=== PATIENT | female | born 1990 | race Caucasian/White ===

== ENCOUNTER 2018-04-28 18:52 | Emergency (ER) | payer MEDICAID, SELFPAY ==
[2018-04-28 18:53] VITALS: BP 127/73; PULSE 87; RESP 18; TEMP 36.1; O2SAT 99; BMI 37.8
--- NOTE | 2018-04-28 19:19 | ED.DCSUM_ITS ---
- ER Visit Summary Date of Service: 04/28/18 Chief Complaint: Headache History of Present Illness: The patient is a 27 F presents to the emergency department headache. Patient states that she has a history of migraine, but has not had one for years. She states she woke yesterday with a frontal headache. She states that it got worse throughout the day. She was nauseated with a few bouts of vomiting. She states that she went to [place]. She had medications with some improvement of her symptoms, but then the headache returned today. She denies any visual change but does admit to photophobia. She denies any trauma. She denies any history of carbon monoxide exposure. She states she has only had headache for 2 days. It did not wake her from sleep. Physical Examination: Well-appearing patient is in no acute distress. Head is normocephalic, atraumatic. Pupils equal round reactive, extraocular muscles intact. There is no temporal artery tenderness. There is no vesicular rash. Neck supple. Kernig's and Brudzinski's are negative. Heart regular rate and rhythm. Lungs clear, chest nontender. Abdomen soft, nontender, nondistended. Neuro exam displays no focal or lateralizing deficit. 2+ symmetric lower extremity reflexes. No clonus. No ataxia or gait abnormality. Test Results: [] Emergency Department Course and Treatment: The patient presents with worsening headache. She has a history of migraine but states that this feels different. She is not meningitic. She is not encephalopathic. Headache was gradual in onset. As this was the patient's second ER visit, I did obtain a head CT. This was unremarkable. The patient was treated with Toradol, Compazine, Benadryl, Decadron. On reevaluation, her headache is totally resolved. I do not suspect a dangerous process like subarachnoid. The patient has a benign neurologic examination. She will be treated with antiemetics and Fioricet that she has had improvement with this in the past. The patient be discharged home. Treatment Plan: [] Disposition: Discharge Impression: Headache This note was generated with BRAINDIGITation software. It may contain incorrect words, spelling, and punctuation that were not noted in review of the chart prior to signing ED Disposition - Plan for ED Patient: Chief Complaint: Headache Instructions: ED Headache Migraine Prescriptions: Acetaminophen/Butalbital/Caffe [Fioricet] 1 tab PO Q4H PRN PRN #20 tab PRN Reason: Headache Ondansetron [Zofran Odt] 4 mg PO Q8H PRN PRN #10 tab PRN Reason: Nausea Referrals: NOT,DEFINED [NON-STAFF] -
[2018-04-28] MEDS: proCHLORPERazine 10 MG/2 ML Vial IV (19:28)
[2018-04-28] MEDS: 0.9% Normal Saline 1,000 ML 999 ML IV (19:28)
[2018-04-28] MEDS: Ketorolac 30 MG/ML Syringe IV (19:29)
[2018-04-28] MEDS: DiphenhydrAMINE 50 MG/ML Syringe IV (19:29)
[2018-04-28 21:18] VITALS: BP 135/71; PULSE 78; RESP 16; O2SAT 97
== END 2018-04-28 21:32 | disposition home or self-care (01) ==
PROVIDERS: Emergency Provider Emergency Medicine; Family Provider Family Medicine; PCP Family Medicine
DX: G43.909 Migraine, unspecified, not intractable, without status migrainosus (principal)
CPT/HCPCS: 70450; 96361; 96374; 96375; 99283

== ENCOUNTER 2019-09-02 12:11 | Emergency (ER) | payer MEDICAID, SELFPAY ==
[2019-04-24 10:00] VITALS: BMI 37.8
[2019-09-02 12:12] VITALS: BP 128/73; PULSE 88; RESP 17; TEMP 36.7; O2SAT 96
[2019-09-02 12:13] VITALS: BP 128/73; PULSE 87; RESP 16; TEMP 36.7; O2SAT 96; BMI 42.5
[2019-09-02 13:11] VITALS: TEMP 37.2
[2019-09-02 13:13] VITALS: O2SAT 96
--- NOTE | 2019-09-02 13:23 | RAD_ITS ---
STUDY: X-RAY CHEST REASON FOR EXAM: Female, 28 years old. COUGH TECHNIQUE: 2 views of the chest were obtained COMPARISON: None. FINDINGS: Right upper lobe reticulonodular infiltrates likely pneumonia chronic size within normal limits. No pleural effusion. IMPRESSION: Reticulonodular infiltrates with associated airspace opacities in the right upper lobe likely pneumonia.. Electronically Signed: Balaji Barnes, at 14:55 EST Tel , Service support , RAD/Chest PA and Lateral
--- NOTE | 2019-09-02 14:17 | ED.VIS.GEN ---
History of Present Illness Narrative: 28-year-old female presents with concern for cough and congestion. States this began approximately 10 days ago. States that she is currently being treated for bronchitis by her primary care provider with Tessalon Perles and doxycycline. States that she has been on 3 days of this medication but has had no relief in her symptoms. Patient is not a current smoker. Denies any history of DVT or pulmonary embolism. Denies any recent long trips, surgeries, hospitalizations. Denies any chest pain, shortness of breath, nausea, vomiting, or diaphoresis. <Ruel Gutierrez - Last Filed: 09/02/19 14:59> <Adin Joseph - Last Filed: 09/02/19 23:46> Chief Complaint: Cough Past Medical History Prior records reviewed: Yes Past Medical History: None Surgical History: no surgical history Lives: Spouse/ Significant Other, With Family Smoking Status: Never smoker Alcohol: None Drugs: None <Ruel Gutierrez - Last Filed: 09/02/19 14:59> <Adin Joseph - Last Filed: 09/02/19 23:46> - Allergies and Home Meds Allergies/Adverse Reactions: Allergies azithromycin Allergy (Verified 09/02/19 12:12) Rash Primary Care Physician: Hernando Domínguez MD [Primary Care Provider] - Review of Systems General: Denies: Chills, Fever, Sweats Eyes: Denies: Visual changes - bilaterally, Diplopia ENT: Denies: Rhinorrhea, Sore throat Cardiovascular: Denies: Chest pain, Palpitations Respiratory: Reports: Cough. Denies: Dyspnea, Dyspnea on exertion Gastrointestinal: Denies: Abdominal pain, Nausea, Vomiting, Diarrhea, Melena, Hematochezia Genitourinary: Denies: Dysuria, Hematuria, Frequency Musculoskeletal: Denies: Back pain, Extremity Pain Skin: Denies: Rash, Wounds Neurological: Denies: Headache, Weakness, Numbness <Ruel Gutierrez - Last Filed: 09/02/19 14:59> Physical Exam Vital Signs/Narrative: Vital Signs Temp Pulse Resp BP Pulse Ox 09/02/19 13:11 99 F 09/02/19 12:13 98.1 F 87 16 128/73 H 96 09/02/19 12:12 98.1 F 88 17 128/73 H 96 General: Well nourished, Well developed, No Acute Distress Head: Normocephalic, Atraumatic Eyes: Perrl, EOMI ENT: Moist mucous membranes, No rhinorrhea Neck: Supple, Nontender Cardiovascular: Regular rate, Regular rhythm, No murmurs Respiratory: No distress, CTA bilaterally, Chest nontender Abdomen: Soft, Nontender, Nondistended, Normal bowel sounds Back: Nontender, Normal Inspection Extremities: Nontender, No edema Skin: Normal color, No rash Neurological: Alert, Oriented x3, Cranial nerves II-XII grossly intact, Normal Strength, Normal Sensation Psychological: Normal affect, Normal Mood <Ruel Gutierrez - Last Filed: 09/02/19 14:59> Diagnostic/Tx/Re-eval Chest X-Ray - ED: 2 View, - - Right upper lobe pneumonia. - Medical Decision Making Patient appears well nontoxic. Vital signs within normal limits. Lungs clear bilaterally. Chest x-ray shows evidence of a right upper lobe pneumonia. Patient will continue on Tessalon Perles as well as doxycycline. I will add on albuterol inhaler and have her follow-up with her primary care provider within the next 48 hours. Asked to return for new or worsening symptoms. Patient was agreeable and discharged home in stable condition. <Ruel Gutierrez - Last Filed: 09/02/19 14:59> - Medical Decision Making Patient was seen with me. I did a [id number] examination with the patient. Patient presents with cough and congestion for the past few days. Patient was recently started on doxycycline. Patient states she has not been feeling any better since starting this. Patient was told to come to the emergency department if she had no improvement of her symptoms. Vital signs are stable. Patient is afebrile. Patient is in no acute distress. Oral mucosa is pink and moist. Neck is supple. Heart was regular rate and rhythm. Lungs are clear and equal bilaterally. Chest x-ray shows a right upper lobe infiltrate. Patient just started doxycycline and I do not feel that a change in antibiotics at this time is necessary. Patient was instructed to finish her doxycycline as prescribed. Patient was given a prescription for an albuterol inhaler. Patient was instructed to follow-up with her primary care physician in 2 to 3 days. Patient understood and was agreeable with the plan. All questions were answered. <Adin Joseph - Last Filed: 09/02/19 23:46> ED Disposition <Ruel Gutierrez - Last Filed: 09/02/19 14:59> <Adin Joseph - Last Filed: 09/02/19 23:46> - Plan for ED Patient: Disposition: Home or Assisted Living Diagnosis: Pneumonia Instructions: PNEUMONIA (Adult) Prescriptions: Albuterol Inhaler [Ventolin Hfa] 1 - 2 puff INHALATION Q4H PRN PRN #1 inhaler PRN Reason: Shortness Of Breath Prescription Printed Referrals: Hernando Domínguez MD [Primary Care Provider] -
[2019-09-02 14:45] VITALS: TEMP 36.8
== END 2019-09-02 15:19 | disposition home or self-care (01) ==
PROVIDERS: Emergency Provider Emergency Medicine; Family Provider Family Medicine; PCP Family Medicine
DX: J18.9 Pneumonia, unspecified organism (principal)
CPT/HCPCS: 71046; 99282; J7030; A4216

== ENCOUNTER → 2020-10-06 14:09 | Outpatient (CLI) | payer MEDICAID, SELFPAY ==
--- NOTE | 2020-10-06 14:12 | CT_ITS ---
STUDY: CT MAXILLOFACIAL SINUSES REASON FOR EXAM: Female, 29 years old. LOSS OF TASTE AND SMELL SINCE , SINUS INFECTIONS RADIATION DOSAGE (If Supplied By Facility): CTDIvol = ( 33.06 ) mGy, DLP = ( 759.47 ) mGycm TECHNIQUE: The patient was scanned in a multi detector CT scanner. High resolution axial imaging was performed without the administration of intravenous contrast material. Sagittal and coronal images were reconstructed. Individualized dose optimization techniques were used for this CT. COMPARISON: None. FINDINGS: FRONTAL SINUSES: Normal aeration, without mucosal inflammatory disease. ETHMOIDAL SINUSES: Normal aeration, without mucosal inflammatory disease. MAXILLARY SINUSES: There is minimal mucosal thickening SPHENOIDAL SINUSES: Normal aeration, without mucosal inflammatory disease. There is patency of the bilateral maxillary infundibuli with normal uncinate processes, ethmoid bullae, and hiatus semilunaris. Normal bilateral middle turbinates. Normal bilateral inferior turbinates. There is mild deviation of the nasal septum. There is patency of the bilateral nasal airways. CT/Sinus/Facial Bone IMPRESSION: Minimal chronic sinus disease. Otherwise unremarkable examination. Electronically Signed: Mario Alberto Goddard MD at 15:04 EST Tel , Service support ,
== END ==
PROVIDERS: PCP Family Medicine; Referring Provider Otolaryngology Otolaryngology/Facial Plastic Surgery; Visit Provider Otolaryngology Otolaryngology/Facial Plastic Surgery
DX: R43.1 Parosmia (principal)
CPT/HCPCS: 70486

== ENCOUNTER → 2021-01-19 09:34 | Outpatient (CLI) | payer MEDICAID, SELFPAY ==
[2021-01-07 10:07] VITALS: BMI 39.3
--- NOTE | 2021-01-19 09:36 | BI_ITS ---
MAMMOGRAPHY - BILATERAL DIAGNOSTIC REASON FOR EXAM: Female, 30 years old. Nipple inversion. PERTINENT HISTORY: Pain, history of left nipple inversion TECHNIQUE: Digital examination. Mediolateral oblique (MLO) and craniocaudad (CC) views of both breasts were obtained. CAD: CAD was performed on this study. COMPARISON: None. FINDINGS: Breast Composition: There are scattered areas of fibroglandular density. There are no dominant masses or suspicious calcifications. No other significant abnormalities are identified. There is however an area of asymmetry in the upper outer quadrant noted on the MLO view and further evaluation of this area with ultrasound is recommended BI/DIAG MAMM W/CAD, BILAT IMPRESSION: Further ultrasonographic evaluation recommended, as described above. Recall Side: Left Breast ASSESSMENT CATEGORY: BIRADS Category 0: Incomplete. Need additional imaging evaluation. A letter regarding these results will be sent to the patient by the facility within 30 days. FOLLOW UP RECOMMENDATION: Ultrasound Recommended. (I) Approximately 10% of breast cancers are not detected by mammography. A normal mammogram should not delay biopsy of a clinically suspicious abnormality. Electronically Signed: Jese Thomas MD at 11:21 EDT , Service support ,
--- NOTE | 2021-01-19 09:36 | US_ITS ---
STUDY: ULTRASOUND BREAST - LEFT REASON FOR EXAM: Female, 30 years old. Abnormal mammogram TECHNIQUE: Axial and longitudinal images of the LEFT breast were performed with a high resolution ultrasound transducer. # OF IMAGES: 39 COMPARISON: Mammogram from earlier today FINDINGS: LEFT Breast: Ultrasound evaluation of the left breast in the area of concern shows a well-defined hypoechoic with fatty hilum nodule at 2 o''clock, 8 cm from the nipple measuring 0.7 x 1.2 x 0.4 cm. There is no posterior enhancement or shadowing. Findings are system with a lymph node. No suspicious shadowing solid lesion, architectural distortion or clustered calcifications. US/Breast Limited Unilateral IMPRESSION: Physiologic lymph node, no suspicious sonographic findings. Patient can return for screening mammogram in 1 year ASSESSMENT CATEGORY: BIRADS Category 2: Benign. A letter regarding these results will be sent to the patient by the facility within 30 days. Electronically Signed: Jese Thomas MD at 11:33 EDT , Service support ,
== END ==
PROVIDERS: PCP Nurse Practitioner Family; Referring Provider Nurse Practitioner Women's Health; Visit Provider Nurse Practitioner Women's Health
DX: N64.59 Other signs and symptoms in breast (principal); N64.4 Mastodynia; R92.8 Other abnormal and inconclusive findings on diagnostic imaging of breast
CPT/HCPCS: 76642; 77062; 77063; 77066; G0279

== ENCOUNTER → 2022-01-25 | Outpatient (CLI) | payer MEDICAID, SELFPAY ==
--- NOTE | 2022-01-25 16:29 | BI_ITS ---
MAMMOGRAPHY - BILATERAL SCREENING REASON FOR EXAM: Female, 31 years old. Routine annual screening examination. PERTINENT HISTORY: Non-contributory. TECHNIQUE: Digital bilateral breast [place] (3D mammographic acquisition) in the CC and MLO projections. 2-D mediolateral oblique (MLO) and craniocaudad (CC) views of both breasts were obtained. CAD: Full Field Digital Mammography with Computer Added Detection was performed. COMPARISON: Bilateral diagnostic mammogram from 01/19/2021. Left breast ultrasound from 01/19/2021. FINDINGS: Breast Composition: There are scattered areas of fibroglandular density. There is a stable asymmetry in the left upper breast, previously characterized as a lymph node. No dominant masses or suspicious calcifications. No other significant abnormalities are identified. There has been no significant change since the prior study. BI/SCRN MAMM (CAD)W/[place] BILAT IMPRESSION: Stable bilateral screening mammogram. Yearly follow-up mammogram recommended. (A) ASSESSMENT CATEGORY: BIRADS Category 2: Benign. A letter regarding these results will be sent to the patient by the facility within 30 days. Approximately 10% of breast cancers are not detected by mammography. A normal mammogram should not delay biopsy of a clinically suspicious abnormality. [id number] Electronically Signed: Benjy Storm, at 17:40 EDT ,
== END | disposition home or self-care (01) ==
PROVIDERS: PCP Nurse Practitioner Family; Visit Provider Nurse Practitioner Women's Health
DX: Z12.31 Encounter for screening mammogram for malignant neoplasm of breast (principal)
CPT/HCPCS: 77063; 77067

== ENCOUNTER → 2022-08-04 | Outpatient (CLI) | payer MEDICAID, SELFPAY ==
[2022-08-10 20:57] LABS: HPV APTIMA, High Risk Negative (Negative)
== END | disposition home or self-care (01) ==
LOC: LABSPEC 11:47
PROVIDERS: PCP Nurse Practitioner Family; Visit Provider Nurse Practitioner Women's Health
DX: Z12.4 Encounter for screening for malignant neoplasm of cervix (principal)
CPT/HCPCS: 87624; 88175; G0145

== ENCOUNTER → 2023-02-11 | Outpatient (CLI) | payer MEDICAID, SELFPAY ==
--- NOTE | 2023-02-11 13:01 | BI_ITS ---
MAMMOGRAPHY - BILATERAL SCREENING REASON FOR EXAM: Female, 32 years old. Routine annual screening examination. PERTINENT HISTORY: Non-contributory. TECHNIQUE: Digital bilateral breast [place] (3D mammographic acquisition) in the CC and MLO projections. 2-D mediolateral oblique (MLO) and craniocaudad (CC) views of both breasts were obtained. CAD: Full Field Digital Mammography with Computer Added Detection was performed. COMPARISON: Comparison is made with prior study dated January 25, 2022 and January 19, 2021. FINDINGS: Breast Composition: There are scattered areas of fibroglandular density. There are no dominant masses or suspicious calcifications. Stable benign-appearing bilateral axillary lymph nodes. No other significant abnormalities are identified. There has been no significant change since the prior study. BI/SCRN MAMM (CAD)W/[place] BILAT IMPRESSION: Stable bilateral screening mammogram. Yearly follow-up mammogram recommended. (A) ASSESSMENT CATEGORY: BIRADS Category 2: Benign. A letter regarding these results will be sent to the patient by the facility within 30 days. Approximately 10% of breast cancers are not detected by mammography. A normal mammogram should not delay biopsy of a clinically suspicious abnormality. [id number] Electronically Signed: Tor Rockwell MD at 14:38 EDT ,
== END | disposition home or self-care (01) ==
LOC: OPBI 12:59
PROVIDERS: PCP Nurse Practitioner Family; Referring Provider Nurse Practitioner Women's Health; Visit Provider Nurse Practitioner Women's Health
DX: Z12.31 Encounter for screening mammogram for malignant neoplasm of breast (principal)
CPT/HCPCS: 77063; 77067

== ENCOUNTER 2024-02-16 13:07 | Emergency (ER) | payer MEDICAID, SELFPAY ==
[2024-02-16 13:07] VITALS: BP 127/88; PULSE 83; RESP 16; TEMP 36; O2SAT 95; BMI 41.8
--- NOTE | 2024-02-16 15:31 | EX.ED.DYSGE1 ---
HPI History of Present Illness Chief Complaint: Rash Informant: patient Onset/Context/Timing Onset: Yesterday Narrative Narrative: Patient presents secondary to rash. Yesterday she woke with rash on her trunk and extremities. She was seen at [facility] in [place] where she had a strep test that was negative. They gave her prescription for steroids, however patient states she cannot take high-dose prednisone so they told her just to not take anything. She woke this morning after rash and improved yesterday to recurrent lesions on her extremities. Trunk does not seem to be as affected today. She also reports a recent cough with cough that has continued. [facility] Medical History Generalized headaches Allergies Inversion, nipple Home Medications ?Medication ?Instructions ?Recorded ?Last Taken ?Type prenat.vits,bell,[id number] 1 tab PO DAILY 03/16/19 Unknown History ascorbate calcium (vitamin C) 500 500 mg PO DAILY 01/07/21 Unknown History mg tablet cetirizine 10 mg capsule (Zyrtec) 10 mg PO DAILY PRN 01/07/21 Unknown History cholecalciferol (vitamin D3) 50 50 mcg PO DAILY 01/07/21 Unknown History mcg (2,000 unit) capsule iron 18 mg tablet 18 mg PO DAILY 01/07/21 Unknown History lactobacillus combination no.8 3 3,000 mmu cells PO DAILY 01/07/21 Unknown History billion cell capsule (Adult Probiotic) Allergy/AdvReac Type Severity Reaction Status Date / Time azithromycin Allergy Rash Verified 01/12/23 09:04 Family History Other Arthritis Autoimmune disease History of blood clots Surgical History H/O excision of dermoid cyst H/O oral surgery H/O section Social History household members: spouse and children number of children: 4 current occupational status: employed current occupation: [employer] history of recent travel: No sexually active: Yes Smoking Status: Never smoker alcohol intake: never substance use type: does not use what type of physical activity do you participate in: walking seatbelt use: always do you feel safe at home: Yes additional social history: DOES NOT USE ASPIRIN DOES USE IBUPROFEN NEEDED - Chad TAPIA ROS ED Constitutional Constitutional ED: Denies chills or fever(s) Eyes Eyes: Denies change in vision ENT ENT ED: Denies rhinorrhea or sore throat Cardiovascular Cardiovascular: Denies chest pain or palpitations Respiratory/Chest Respiratory/Chest: Reports cough; Denies dyspnea Gastrointestinal Gastrointestinal: Denies abdominal pain, nausea or vomiting Musculoskeletal Musculoskeletal: Denies back pain or extremity pain Integumentary Reports rash; Denies Abrasions Neurologic Neurologic: Denies headache(s) or weakness Psychiatric Psychiatric: Denies anxiety or depression Allergic/Immunologic Allergic/Immunologic ED: Denies lip swelling or urticaria EXAM Physical Exam Const Vital Signs: 02/16/24 13:07 Temperature 96.8 F L Temperature Source Temporal Pulse Rate 83 Respiratory Rate 16 Blood Pressure 127/88 H Blood Pressure Mean 101 Pulse Ox 95 Oxygen Delivery Method Room Air Positive well nourished and well developed General Appearance ED: well developed HEENT Reports moist mucous membranes Chest Wall inspection of chest normal and palpation of chest normal Resp normal respiratory effort and clear to auscultation bilaterally Cardio regular rate and regular rhythm GI non-tender Palpation: soft Neuro oriented x3 and no sensory deficits noted Motor Exam: strength 5/5 throughout Psych mental status grossly normal Skin Skin Narrative: Fine red rash noted diffusely over the extremities. No lesions noted on the palms or soles. No target lesions or vesicles. MDM MDM MDM Narrative Medical decision making narrative: 2 view chest x-ray we obtained to evaluate for any infiltrate as patient does have continued cough. I will also check a CBC to evaluate her platelet count. Lab Data Labs: Laboratory Results - last 24 hr 02/16/24 15:46 WBC 7.1 RBC 4.60 Hgb 12.1 Hct 37.3 MCV 81.1 MCH 26.3 L MCHC 32.4 RDW Std Deviation 40.3 RDW Coeff of Marisa 14.1 Plt Count 320 MPV 10.1 Immature Gran % (Auto) 0.600 Neut % (Auto) 77.4 H Lymph % (Auto) 17.0 L Meigs % (Auto) 4.4 Eos % (Auto) 0.3 Baso % (Auto) 0.3 Absolute Neuts (auto) 5.5 Absolute Lymphs (auto) 1.21 Nucleated RBC % 0 Radiography Diagnostic Testing: Clinical Impression(s) from Imaging Studies Chest X-Ray 02/16/24 15:55 IMPRESSION: Normal x-ray examination of the chest. Electronically Signed: Dany Mendoza MD at 16:26 EDT , Treatment and Re-Evaluation :: 2 view chest x-ray per my interpretation reveals no focal infiltrate. Radiology interpretation reviewed and agrees. CBC is obtained and reveals a normal hemoglobin at 12.1 and a normal platelet count at 320,000. On repeat evaluation the erythema on her legs appears improved just with elevation of her feet. The rash on the volar forearms appears lacy and consistent with a viral exanthem. I do feel that this will run its course and she does not need any steroids or other medication. She will continue supportive care at home. Discharge Plan Triage Chief Complaint: Rash ED Provider: Rosie Ramirez Dx/Rx/DC Orders Clinical Impression: Viral exanthem Instructions: ED Viral Exanthem Rash (Adult) Prescriptions: No Action prenat.vits,bell,[id number] Tablet 1 tab PO DAILY Zyrtec 10 mg capsule 10 mg PO DAILY PRN cholecalciferol (vitamin D3) 50 mcg (2,000 unit) capsule 50 mcg PO DAILY iron 18 mg tablet 18 mg PO DAILY ascorbate calcium (vitamin C) 500 mg tablet 500 mg PO DAILY Adult Probiotic 3 billion cell capsule 3,000 mmu cells PO DAILY Rx Instructions: administer with a meal Primary Care Provider: Byron Rodrigez Referrals: Yudi Phipps [facility], [facility] [Non-Staff] - 1 Week if not improving Print Language: Portuguese Disposition Disposition: Home, Self Care
--- NOTE | 2024-02-16 15:55 | RAD_ITS ---
STUDY: X-RAY CHEST REASON FOR EXAM: Female, 33 years old. cough TECHNIQUE: Frontal and lateral views of the chest. COMPARISON: 09/02/2019. FINDINGS: The lungs are clear and expanded. There is no demonstrated pleural abnormality. Normal size heart. Normal mediastinum and [place]. Normal visualized pulmonary arteries. Normal visualized aortic arch and descending thoracic aorta. Normal visualized thoracic spine. Normal visualized ribs, clavicles, and shoulders. There is no demonstrated abnormality of the visualized soft tissue structures of the upper abdomen. RAD/Chest PA and Lateral IMPRESSION: Normal x-ray examination of the chest. Electronically Signed: Dany Mendoza MD at 16:26 EDT ,
[2024-02-16 16:30] LABS: Absolute Lymphocyte Count 1.21 X10^3/uL (0.83-4.51); Absolute Neutrophil Count 5.5 X10^3/uL (2.0-7.7); Basophil# 0.02 X10^3/uL; Basophil% 0.3 % (0-1); Eosinophil# 0.02 X10^3/uL; Eosinophils% 0.3 % (0-5); Hematocrit 37.3 % (37-47); Hemoglobin 12.1 g/dL (12.0-15.0); Lymphocyte # 1.21 X10^3/ul (0.83-4.51); Mean Corp Hgb Conc 32.4 g/dL (32-36); Mean Corpuscular Hgb 26.3 pg (27.0-32.0); Mean Corpuscular Volume 81.1 fL (81-99); Mean Platelet Vol. 10.1 fl (6.2-12.0); Monocyte# 0.31 X10^3/uL; Monocyte% 4.4 % (0-10); NRBC Flagged by Analyzer 0 % (0-5); Neutrophil # 5.51 X10^3/uL (2.7-7.7); Neutrophil % 77.4 % (47-70); POSITIVE MORPHOLOGY YES; Platelet Count 320 K/mm3 (150-450); RBC Distribution Width CV 14.1 % (11.6-14.6); RBC Distribution Width SD 40.3 fl (35.1-43.9); White Blood Count 7.1 K/mm3 (4.4-11.0)
[2024-02-16 16:33] LABS: Differential Indicated SCAN CRITERIA MET
[2024-02-16 16:55] LABS: Differential Comment SCANNED
== END 2024-02-16 16:48 | disposition home or self-care (01) ==
PROVIDERS: Emergency Provider Emergency Medicine; PCP Physician Assistant; Visit Provider Emergency Medicine
DX: B09 Unspecified viral infection characterized by skin and mucous membrane lesions (principal); R05.9 Cough, unspecified
CPT/HCPCS: 71046; 85025; 99282; A4216